=== PATIENT | female | born 1980 | race Caucasian/White ===

== ENCOUNTER 2016-09-07 20:32 | Emergency (ER) | payer MEDICAID ==
[~2016-09-07] VITALS: Ht 162.6 cm; Wt 72.1 kg
[2016-09-07 20:43] VITALS: BP 95/67
[2016-09-07] MEDS ORDERED: LORAZEPAM 1 MG TABLET ONE (20:54)
[2016-09-07] MEDS ORDERED: ACETAMINOPHEN 325 MG TABLET ONE (20:55)
[2016-09-07] MEDS ORDERED: ACETAMINOPHEN 325 MG TABLET PO ONE (21:00)
[2016-09-07] MEDS ORDERED: LORAZEPAM 1 MG TABLET PO ONE (21:00)
[2016-09-07 21:49] LABS: KETONES,URINE NEGATIVE (NEGATIVE); LEUKOCYTE ESTERASE ,URINE NEGATIVE (NEGATIVE)
[2016-09-07 21:50] LABS: ADD UA MICROSCOPIC YES
[2016-09-07 21:51] LABS: ADD URINE CULTURE NO
[2016-09-07 21:52] LABS: PREGNANCY TEST URINE QUAL NEGATIVE (NEGATIVE)
== END 2016-09-07 22:23 | disposition home or self-care (01) ==
LOC: ER 20:39
DX: J06.9 Acute upper respiratory infection, unspecified (principal); F41.9 Anxiety disorder, unspecified; J02.9 Acute pharyngitis, unspecified
CPT/HCPCS: 71010; 81001; 84703; 99285; A4606; Z7610; 81000-TC

== ENCOUNTER 2019-02-02 20:47 | Emergency (ER) | payer MEDICAID ==
[~2019-02-02] VITALS: Ht 162.6 cm; Wt 61.2 kg
--- NOTE | 2019-02-02 21:10 | NUR ---
SENT BY URGENT CARE W/ CONCERN OF R WRIST PAIN AND BRUISING . WAS TOLD AND CONCERN ABOUT BLOOD CLOT. PMH OF TENDONITIS W/ STEROID INJECTIONS
--- NOTE | 2019-02-02 21:30 | NUR ---
US TECH AT THE BED SIDE
--- NOTE | 2019-02-02 22:23 | NUR ---
Pt ok to discharge per Miko CARLIN. Patient discharged to home in stable condition. Written and verbal after care instructions given. Patient verbalizes understanding of instruction.Patient is awake and alert to self, day, and place. Pt ambulatory with a steady gait
[2019-02-02 22:24] VITALS: BP 114/63
== END 2019-02-02 22:25 | disposition home or self-care (01) ==
LOC: ER 20:51
DX: S60.211A Contusion of right wrist, initial encounter (principal); R60.0 Localized edema; F31.9 Bipolar disorder, unspecified; X58.XXXA Exposure to other specified factors, initial encounter; Y93.89 Activity, other specified; Y92.89 Other specified places as the place of occurrence of the external cause; Y99.8 Other external cause status
CPT/HCPCS: 93971-TC

== ENCOUNTER 2019-10-29 23:07 | Emergency (ER) | payer MEDICAID ==
[~2019-10-29] VITALS: Ht 162.6 cm; Wt 68.0 kg
--- NOTE | 2019-10-29 23:22 | NUR ---
PATIENT CAME TO ER BED 10 C/O RIGHT SIDED OCCIPITAL REGION HEADACHE FOR 1x WEEK. PATIENT STATES THAT SHE TOOK TYLENOL AROUND 1700 OF TODAY WITH NO RELIEF. PATIENT STATES SHE HAS HISTORY OF MIGRAINES. PATIENT ALSO STATES THAT SHE USUALLY HAS A NORMAL BLOOD PRESSURE OF 80/60. AAOX4. NO SOB. BREATHING EVENLY AND UNLABORED ON ROOM AIR. CONNECTED TO MONITOR.
[2019-10-29] MEDS ORDERED: HYDROMORPHONE 1 MG/1 ML DISP.SYRIN IM ONE (23:30)
[2019-10-29] MEDS ORDERED: ONDANSETRON 4 MG TAB.RAPDIS SL ONE (23:30)
[2019-10-29] MEDS ORDERED: CYCLOBENZAPRINE 10 MG TABLET PO ONE (23:30)
[2019-10-29] MEDS ORDERED: HYDROMORPHONE 1 MG/1 ML DISP.SYRIN ONE (23:36)
[2019-10-29] MEDS ORDERED: ONDANSETRON 4 MG TAB.RAPDIS ONE (23:36)
[2019-10-29] MEDS ORDERED: CYCLOBENZAPRINE 10 MG TABLET ONE (23:36)
--- NOTE | 2019-10-30 00:38 | NUR ---
CURRENTLY DENIES NAUSEA.
[2019-10-30 00:39] VITALS: BP 109/61
--- NOTE | 2019-10-30 00:39 | NUR ---
Patient discharged to home in stable condition. Written and verbal after care instructions given. Patient verbalizes understanding of instruction.
--- NOTE | 2019-10-30 00:39 | NUR ---
Patient is ambulatory with a steady gait.
--- NOTE | 2019-10-30 00:40 | NUR ---
PATIENT STATE THAT SHE IS BEING PICKED UP BY BOYFRIEND.
== END 2019-10-30 00:40 | disposition home or self-care (01) ==
LOC: ER 23:11
DX: R51 Headache (principal); F17.210 Nicotine dependence, cigarettes, uncomplicated; Z86.19 Personal history of other infectious and parasitic diseases; Z88.6 Allergy status to analgesic agent
CPT/HCPCS: 96372; 99283; 99406; J1170; Q0162

== ENCOUNTER 2024-08-08 08:34 | Emergency (ER) | payer MEDICAID ==
[~2024-08-08] VITALS: Ht 162.6 cm; Wt 74.8 kg
[2024-08-08 09:08] LABS: BASOPHILS # (AUTO) 0.1 K/uL (0.0-0.2); BASOPHILS % (AUTO) 1.3 % (0.0-2.0); EOSINOPHILS # (AUTO) 0.1 K/uL (0.0-0.7); HEMATOCRIT 40 % (33-45); HEMOGLOBIN 13.3 g/dL (11.5-14.8); LYMPHOCYTES # (AUTO) 2.2 K/uL (0.8-4.8); LYMPHOCYTES % (AUTO) 26.7 % (20.0-44.0); MEAN CORPUSCULAR HEMOGLOBIN 30 PG (26.0-33.0); MEAN CORPUSCULAR HGB CONC 34 g/dl (31.0-36.0); MEAN CORPUSCULAR VOLUME 90 fL (82-100); MONOCYTES # (AUTO) 0.6 K/uL (0.1-1.30); MONOCYTES % (AUTO) 7.5 % (2.0-12.0); NEUTROPHILS # (AUTO) 5.2 K/uL (1.8-8.9); NEUTROPHILS % (AUTO) 63.5 % (43.0-81.0); PLATELET COUNT (AUTO) 346 K/uL (150-450); RED BLOOD CELL COUNT(AUTO) 4.41 MIL/uL (4.0-5.2); RED CELL DISTRIBUTION WIDTH 14.5 % (11.5-15.0); WHITE BLOOD COUNT (AUTO) 8.1 K/uL (4.3-11.0)
[2024-08-08 09:20] LABS: APPEARANCE,URINE SLIGHTLY CLOUDY (CLEAR); BILIRUBIN,URINE NEGATIVE (NEGATIVE); BLOOD, URINE 3+ Ery/uL (NEGATIVE); COLOR,URINE YELLOW (YELLOW); KETONES,URINE NEGATIVE (NEGATIVE); LEUKOCYTE ESTERASE ,URINE 2+ (NEGATIVE); NITRITE, URINE NEGATIVE (NEGATIVE); PROTEIN,URINE TRACE mg/dl (NEGATIVE); UGLUCOSE NEGATIVE (NEGATIVE); UROBILINOGEN,URINE 0.2 EU/dL (0.2)
[2024-08-08 09:25] LABS: PREGNANCY TEST URINE QUAL NEGATIVE (NEGATIVE)
[2024-08-08 09:33] LABS: ALBUMIN 3.6 g/dL (3.4-5.0); BILIRUBIN,DIRECT 0.1 mg/dL (0.0-0.2); BILIRUBIN,TOTAL 0.3 mg/dL (0.2-1.0); CALCIUM, SERUM 8.3 mg/dL (8.5-10.1); CREATININE 0.7 mg/dL (0.6-1.3); POTASSIUM 3.9 mmol/L (3.5-5.1); TOTAL PROTEIN, SERUM 6.8 g/dL (6.4-8.2)
[2024-08-08] MEDS ORDERED: NITR100C6 PO (09:41)
[2024-08-08 09:54] LABS: ADD URINE CULTURE YES; BACTERIA,URINE 1+ /HPF (None Seen)
[2024-08-08 09:56] VITALS: BP 111/70; TEMP 98.6; O2SAT 98
== END 2024-08-08 09:56 | disposition home or self-care (01) ==
LOC: ER 09:12
DX: N39.0 Urinary tract infection, site not specified (principal); F17.200 Nicotine dependence, unspecified, uncomplicated; Z86.73 Personal history of transient ischemic attack (TIA), and cerebral infarction without residual deficits; Z88.6 Allergy status to analgesic agent
CPT/HCPCS: 36415; 76700-TC; 80048-TC; 80076-TC; 81001; 83690-TC; 84703-TC; 85025-TC; 87086-TC